=== PATIENT | female | born 1940 | race Caucasian/White ===

== ENCOUNTER 2017-12-30 09:47 | Emergency (ER) | payer MEDICARE ==
[2017-12-30] MEDS ORDERED: TYLENOL 325 MG PO ONE (10:07)
[2017-12-30] MEDS ORDERED: TYLENOL 325 MG ONE (10:11)
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
[2017-12-30 11:32] VITALS: BP 137/98; PULSE 76; O2SAT 97
== END 2017-12-30 11:32 | disposition home or self-care (01) ==
LOC: ED 09:47
DX: S16.1XXA Strain of muscle, fascia and tendon at neck level, initial encounter (principal); S29.019A Strain of muscle and tendon of unspecified wall of thorax, initial encounter; S20.219A Contusion of unspecified front wall of thorax, initial encounter; M54.6 Pain in thoracic spine; V47.6XXA Car passenger injured in collision with fixed or stationary object in traffic accident, initial encounter
CPT/HCPCS: 71045; 71120; 72040; 72072; 93005; 99284; A9270-GY

== ENCOUNTER 2023-10-12 09:46 | Day surgery (SDC) | payer MEDICARE ==
[~2023-10-12 09:46] MED LIST: Lactated Ringers 1,000 ML IV ONE
[2023-10-12] MEDS ORDERED: BETADINE 5% OPHTHALMIC 30 ML OP ONE (10:00)
[2023-10-12] MEDS ORDERED: cefUROXime sodium 0.005 GM in Sodium Chloride Flush 30 ML*** 0.5 ML IJ ONE (10:00)
[2023-10-12] MEDS ORDERED: NON-FORMULARY ITEM OP ONE (10:00)
[2023-10-12] MEDS: Lactated Ringers 1,000 ML IV SCH (10:24)
[2023-10-12 10:42] VITALS: RESP 16
[2023-10-12] MEDS: TETRACAINE 0.5% STERI-UNIT SOL OP ONE ×2 (11:13→11:15)
[2023-10-12] MEDS: Ak-Dilate OPHTHALMIC*** 1.065 ML, Cyclogyl 1% OPHTH SOL 1.065 ML, GATIFLOXACIN 0.5% OPH... OP ONE (11:14)
[2023-10-12] MEDS ORDERED: Zofran 4 MG/2 ML VIAL IV PRN (12:00)
[2023-10-12] MEDS ORDERED: Epinephrine Preservative Free 1 MG/ML IJ ONE (12:00)
[2023-10-12] MEDS ORDERED: DIPRIVAN 200 MG/20 ML IV ONE (12:32)
[2023-10-12 12:53] VITALS: TEMP 97.2
[2023-10-12 13:12] VITALS: BP 108/76; PULSE 59; O2SAT 97
== END 2023-10-12 13:23 | disposition home or self-care (01) ==
LOC: SDC 09:46
PROVIDERS: ATTEND Ophthalmology
DX: H25.812 Combined forms of age-related cataract, left eye (principal); I10 Essential (primary) hypertension
CPT/HCPCS: 93005; C1780; J0171; J2704; A9270-GY

== ENCOUNTER 2023-11-16 09:09 | Day surgery (SDC) | payer MEDICARE ==
[~2023-11-16 09:09] MED LIST changes: +BETADINE 5% OPHTHALMIC 30 ML OP ONE; -Lactated Ringers 1,000 ML IV ONE; +MOXIFLOXACIN 4 MG/0.8 ML VIAL IO ONE; +TRIAMCINOLONE 15 MG/ML INJ INTRAOP ONE
[2023-11-16] MEDS ORDERED: Epinephrine Preservative Free 1 MG/ML IJ ONE (09:10)
[2023-11-16] MEDS ORDERED: Lactated Ringers 1,000 ML IV ONE ×2 (09:34→12:10)
[2023-11-16 09:37] VITALS: RESP 18
[2023-11-16] MEDS: Lactated Ringers 1,000 ML IV SCH (09:40)
[2023-11-16] MEDS: Ak-Dilate OPHTHALMIC*** 1.065 ML, Cyclogyl 1% OPHTH SOL 1.065 ML, GATIFLOXACIN 0.5% OPH... OP ONE (11:24)
[2023-11-16] MEDS: TETRACAINE 0.5% STERI-UNIT SOL OP ONE ×2 (11:24→11:25)
[2023-11-16] MEDS ORDERED: Zofran 4 MG/2 ML VIAL IV PRN (11:30)
[2023-11-16] MEDS ORDERED: DIPRIVAN 200 MG/20 ML IV ONE (12:29)
[2023-11-16 13:09] VITALS: TEMP 97.4; O2SAT 95
[2023-11-16 13:13] VITALS: BP 140/68; PULSE 62
== END 2023-11-16 13:24 | disposition home or self-care (01) ==
LOC: SDC 09:09
PROVIDERS: ATTEND Ophthalmology
DX: H25.811 Combined forms of age-related cataract, right eye (principal)
CPT/HCPCS: 99100; C1780; J0171; J2704; A9270-GY

== ENCOUNTER 2025-02-08 09:03 | Day surgery (SDC) | payer MEDICARE ==
[2025-02-08 09:58] VITALS: RESP 16
[2025-02-08] MEDS: Lactated Ringers 1,000 ML IV SCH (10:03)
[2025-02-08 10:20] LABS: Calcium 9.3 mg/dL (8.4-10.2); Carbon Dioxide 24.0 mmol/L (22-30); Creatinine 1 0.81 mg/dL (0.52-1.04); EST GLOMERULAR FILTRATION RATE 72.4 ML/MIN; Glucose 91.0 mg/dL (74-106); Potassium 3.8 mmol/L (3.5-5.1)
[2025-02-08] MEDS ORDERED: propofoL IV ONE ×2 (12:15→12:35)
[2025-02-08] MEDS ORDERED: GlucaGen 1 MG ONE (12:26)
[2025-02-08 14:18] VITALS: BP 130/89; PULSE 60; O2SAT 97
[2025-02-08 14:47] VITALS: TEMP 97
--- NOTE | 2025-02-12 07:40 | OP ---
DATE/TIME OF SURGERY: 02/08/2025 [id number] PREOPERATIVE DIAGNOSIS: 1) Abnormal CT scan. 2) Pneumaturia. POSTOPERATIVE DIAGNOSIS: 1) Abnormal CT scan. 2) Pneumaturia. 3) Tortuous colon. 4) Extensive pancolonic diverticulosis. PROCEDURE: Colonoscopy INDICATIONS: Patient presents with abnormal CT scan, pneumaturia, concern for colovesical fistula. Discussion with the patient recommendation for colonoscopy for diagnostic reasons and risks of infection, bleeding, perforation, and she elected to proceed. FINDINGS: Very tortuous, angulated, strictured sigmoid colon, requiring a gastroscope. Extensive diverticulosis. No discrete obvious clearly-defined fistula. Fair preparation. DESCRIPTION OF PROCEDURE AND FINDINGS: The patient was brought to the endoscopy suite, routinely positioned and prepared. IV anesthesia induced by Anesthesia. The digital rectal exam is normal. External examination normal. Colonoscope inserted and advanced about 20 cm. There was an acutely angulated sigmoid colon that you could visualize with lumen, but there is resistance, so that was removed. The gastroscope was then inserted and advanced, and actually that was able to navigate that location but it is acutely angulated and strictured at that point. The scope does pass through there and advanced to the cecum, confirmed by the appendiceal orifice and ileocecal valve. The preparation was Aronchick, fair preparation, 90% mucosal visualization. The withdrawal shows extensive diverticulosis of the entire colon, worse in the sigmoid colon. Otherwise normal. No polyps or lesions identified. The patient tolerated the procedure well and was taken to Recovery in stable condition. RECOMMENDATIONS: Follow up in the office in the next couple of weeks. We would have to talk with her about what further diagnostic or surgical workup treatment she would desire. Typically would get a Gastrografin enema. She may or may not want definitive surgical management of this.
== END 2025-02-08 14:48 | disposition home or self-care (01) ==
LOC: SDC 09:03
PROVIDERS: ATTEND Surgery
DX: K57.30 Diverticulosis of large intestine without perforation or abscess without bleeding (principal); R39.89 Other symptoms and signs involving the genitourinary system; R93.5 Abnormal findings on diagnostic imaging of other abdominal regions, including retroperitoneum